=== PATIENT | male | born 2000 | race African-American/Black ===

== ENCOUNTER 2022-11-05 12:42 | Inpatient (IN) | payer MEDICAID ==
[~2022-11-05] VITALS: Ht 177.8 cm; Wt 88.5 kg
[2022-11-05] MEDS: QUEtiapine FUMARATE 100 MG TABLET PO PRN (16:23)
[2022-11-05] MEDS: LORazepam 2 MG TABLET PO PRN (16:23)
[2022-11-05 16:53] VITALS: BP 109/60
[2022-11-05] MEDS ORDERED: INFLUENZA VIRUS VACCINE QVS 2022-23 (6MO+)/PF 60 MCG/0.5 ML SYRINGE IM. ONE (17:00)
[2022-11-05 23:52] VITALS: BP 117/65
[2022-11-06] MEDS: LORazepam 2 MG TABLET PO PRN ×3 (03:35→20:33)
[2022-11-06 07:38] LABS: BASOPHILS % (AUTO) 0.2 % (0.0-2.0); EOSINOPHILS % (AUTO) 4.8 % (1.0-6.0); HEMATOCRIT 42.9 % (41-53); HEMOGLOBIN 14.2 g/dL (13.5-17.5); LYMPHOCYTES # (AUTO) 2.4 K/uL (1.0-4.8); LYMPHOCYTES % (AUTO) 43.2 % (22.0-44.0); MEAN CORPUSCULAR HEMOGLOBIN 29.7 pg (26.0-34.0); MEAN CORPUSCULAR HGB CONC 33.1 G/dL (31.0-37.0); MEAN CORPUSCULAR VOLUME 90 fL (80-100); MONOCYTES # (AUTO) 0.5 K/uL (0.1-1.0); MONOCYTES % (AUTO) 9.2 % (2.0-9.0); NEUTROPHILS # (AUTO) 2.3 K/uL (1.8-7.7); NEUTROPHILS % (AUTO) 42.6 % (40.0-70.0); PLATELET COUNT (AUTO) 339 K/uL (150-450); RED BLOOD CELL COUNT(AUTO) 4.77 MIL/uL (4.50-5.90); RED CELL DISTRIBUTION WIDTH 13.5 % (11.5-14.5)
[2022-11-06] MEDS ORDERED: ACETAMINOPHEN 325 MG TABLET PO PRN (07:45)
[2022-11-06] MEDS ORDERED: CloNIDine HCL 0.1 MG TABLET PO PRN (07:45)
[2022-11-06] MEDS ORDERED: DOCUSATE SODIUM 100 MG CAPSULE PO PRN (07:45)
[2022-11-06] MEDS ORDERED: ALBUTEROL SULFATE HFA 90 MCG/PUFF 8 GM INHALER IH PRN (07:45)
[2022-11-06] MEDS ORDERED: BACITRACIN 28 GM OINTMENT TP PRN (07:45)
[2022-11-06] MEDS ORDERED: LOPERAMIDE HCL 2 MG CAPSULE PO PRN (07:45)
[2022-11-06] MEDS ORDERED: PETROLATUM,WHITE 28 GM JELLY TP PRN (07:45)
[2022-11-06] MEDS ORDERED: OMEPRAZOLE 20 MG CAPSULE PO PRN (07:45)
[2022-11-06] MEDS ORDERED: ONDANSETRON HCL 4 MG TABLET PO PRN (07:45)
[2022-11-06] MEDS ORDERED: BENZOCAINE/MENTHOL LOZENGE PO PRN (07:45)
[2022-11-06] MEDS ORDERED: IBUPROFEN 600 MG TABLET PO PRN (07:45)
[2022-11-06] MEDS ORDERED: MAGNESIUM HYDROXIDE SUSPENSION 30 ML UDCUP PO PRN (07:45)
[2022-11-06] MEDS ORDERED: MAG HYDROX/AL HYDROX/SIMETH ES 30 ML SUSPENSION UDCUP PO PRN (07:45)
[2022-11-06 07:47] LABS: HEMOGLOBIN A1C 5.8 % (3.8-5.6)
[2022-11-06 08:06] LABS: ALANINE AMINOTRANSFERASE 56 U/L (12-78); ALBUMIN 3.4 g/dL (3.4-5.0); ALKALINE PHOSPHATASE 107 U/L (46-116); ANION GAP 7 mmol/L (8-16); ASPARTATE AMINOTRANSFERASE 24 U/L (15-37); BILIRUBIN,TOTAL 0.1 mg/dL (0.1-1.0); CALCIUM, TOTAL 9.4 mg/dL (8.8-10.5); CARBON DIOXIDE 29 mmol/L (22-29); CHLORIDE 103 mmol/L (98-107); CHOLESTEROL 193 mg/dL (131-200); CREATININE 0.86 mg/dL (0.60-1.30); FREE T4 (FREE THYROXINE) 0.84 ng/dL (0.76-1.46); GLUCOSE,RANDOM 88 mg/dL (70-110); HDL CHOLESTEROL 48 mg/dL (40-60); LDL CHOL (CALC.) 127 mg/dL (0-130); POTASSIUM 4.3 mmol/L (3.5-5.1); SODIUM SERUM 139 mmol/L (136-145); THYROID STIMULATING HORMONE 0.57 uIU/mL (0.36-3.74); TOTAL PROTEIN, SERUM 7.5 g/dL (6.4-8.2); TRIGLYCERIDES 90 mg/dL (15-150); UREA NITROGEN, BLOOD 9 mg/dL (7-18)
[2022-11-06 08:07] LABS: GLOMERULAR FILTR. RATE CALC > 60 mL/min (>60)
[2022-11-06] MEDS: QUEtiapine FUMARATE 100 MG TABLET PO PRN ×2 (08:20→16:09)
[2022-11-06] MEDS: NICOTINE 21 MG/24 HOUR PATCH TD SCH (08:21)
[2022-11-06 08:50] VITALS: BP 134/81
[2022-11-06] MEDS ORDERED: ESCI10 PO (10:30)
[2022-11-06] MEDS: ATOMOXETINE HCL 60 MG CAPSULE PO SCH ×2 (10:30→16:15)
[2022-11-06] MEDS ORDERED: ARIP400S3 IM (10:30)
[2022-11-06] MEDS ORDERED: ESCITALOPRAM OXALATE 10 MG TABLET PO SCH (10:30)
[2022-11-06] MEDS ORDERED: ATOM60CA7 PO (10:30)
[2022-11-06] MEDS: ZOLPIDEM TARTRATE 10 MG TABLET PO PRN (20:33)
[2022-11-06 21:42] VITALS: BP 116/64
[2022-11-06] MEDS ORDERED: LORazepam 2 MG/ML VIAL ONE (23:02)
[2022-11-06] MEDS ORDERED: ChlorproMAZINE HCL 50 MG/2 ML AMP ONE (23:02)
[2022-11-06] MEDS ORDERED: DiphenhydrAMINE HCL 50 MG/ML VIAL ONE (23:02)
[2022-11-06] MEDS ORDERED: DiphenhydrAMINE HCL 50 MG/ML VIAL IM ONE (23:15)
[2022-11-06] MEDS ORDERED: ChlorproMAZINE HCL 50 MG/2 ML AMP IM ONE (23:15)
[2022-11-06] MEDS ORDERED: LORazepam 2 MG/ML VIAL IM ONE (23:15)
[2022-11-07] MEDS: ESCITALOPRAM OXALATE 20 MG TABLET PO SCH (08:11)
[2022-11-07] MEDS: NICOTINE 21 MG/24 HOUR PATCH TD SCH (08:11)
[2022-11-07] MEDS: QUEtiapine FUMARATE 100 MG TABLET PO PRN ×2 (08:11→13:33)
[2022-11-07] MEDS: LORazepam 2 MG TABLET PO PRN ×2 (08:11→13:33)
[2022-11-07] MEDS: ATOMOXETINE HCL 60 MG CAPSULE PO SCH (08:19)
[2022-11-07 08:48] VITALS: BP 128/71
[2022-11-07 22:52] VITALS: BP 123/71
[2022-11-08] MEDS: ESCITALOPRAM OXALATE 20 MG TABLET PO SCH (08:01)
[2022-11-08] MEDS: LORazepam 2 MG TABLET PO PRN ×4 (08:01→21:44)
[2022-11-08] MEDS: QUEtiapine FUMARATE 100 MG TABLET PO PRN ×4 (08:01→21:44)
[2022-11-08] MEDS: ATOMOXETINE HCL 60 MG CAPSULE PO SCH (08:01)
[2022-11-08 08:05] LABS: GLUCOMETER DEV NAME(LOC) POC.BV
[2022-11-08] MEDS: NICOTINE 21 MG/24 HOUR PATCH TD SCH (08:27)
[2022-11-08 08:55] VITALS: BP 115/65
[2022-11-08 20:00] VITALS: BP 122/88
[2022-11-08] MEDS: ZOLPIDEM TARTRATE 10 MG TABLET PO PRN (20:38)
[2022-11-09] MEDS: NICOTINE 21 MG/24 HOUR PATCH TD SCH (08:01)
[2022-11-09] MEDS: ATOMOXETINE HCL 60 MG CAPSULE PO SCH (08:01)
[2022-11-09] MEDS: LORazepam 2 MG TABLET PO PRN ×4 (08:01→21:18)
[2022-11-09] MEDS: ESCITALOPRAM OXALATE 20 MG TABLET PO SCH (08:01)
[2022-11-09] MEDS: QUEtiapine FUMARATE 100 MG TABLET PO PRN ×4 (08:02→21:18)
[2022-11-09 09:32] VITALS: BP 139/80
[2022-11-09] MEDS ORDERED: ChlorproMAZINE HCL 50 MG/2 ML AMP ONE (10:19)
[2022-11-09] MEDS ORDERED: LORazepam 2 MG/ML VIAL ONE (10:20)
[2022-11-09] MEDS ORDERED: DiphenhydrAMINE HCL 50 MG/ML VIAL ONE (10:20)
[2022-11-09] MEDS ORDERED: ChlorproMAZINE HCL 50 MG/2 ML AMP IM ONE (10:30)
[2022-11-09] MEDS ORDERED: DiphenhydrAMINE HCL 50 MG/ML VIAL IM ONE (10:30)
[2022-11-09] MEDS ORDERED: LORazepam 2 MG/ML VIAL IM ONE (10:30)
[2022-11-09 16:22] VITALS: BP 127/70
[2022-11-09 20:00] VITALS: BP 132/80
[2022-11-09] MEDS: ZOLPIDEM TARTRATE 10 MG TABLET PO PRN (21:18)
[2022-11-10] MEDS: ESCITALOPRAM OXALATE 20 MG TABLET PO SCH (08:05)
[2022-11-10] MEDS: QUEtiapine FUMARATE 100 MG TABLET PO PRN ×4 (08:05→20:43)
[2022-11-10] MEDS: LORazepam 2 MG TABLET PO PRN ×4 (08:05→20:43)
[2022-11-10] MEDS: NICOTINE 21 MG/24 HOUR PATCH TD SCH (08:05)
[2022-11-10] MEDS: ATOMOXETINE HCL 60 MG CAPSULE PO SCH (08:06)
[2022-11-10 08:36] VITALS: BP 125/75
[2022-11-10] MEDS: ZOLPIDEM TARTRATE 10 MG TABLET PO PRN (20:43)
[2022-11-10 21:30] VITALS: BP 128/70
[2022-11-11] MEDS: QUEtiapine FUMARATE 100 MG TABLET PO PRN ×3 (08:15→16:28)
[2022-11-11] MEDS: ATOMOXETINE HCL 60 MG CAPSULE PO SCH (08:15)
[2022-11-11] MEDS: LORazepam 2 MG TABLET PO PRN ×3 (08:15→16:28)
[2022-11-11] MEDS: NICOTINE 21 MG/24 HOUR PATCH TD SCH (08:15)
[2022-11-11] MEDS: ESCITALOPRAM OXALATE 20 MG TABLET PO SCH (08:15)
[2022-11-11 09:46] VITALS: BP 124/70
[2022-11-11 20:44] VITALS: BP 121/76
[2022-11-12] MEDS: QUEtiapine FUMARATE 100 MG TABLET PO PRN ×3 (01:33→17:29)
[2022-11-12] MEDS: ZOLPIDEM TARTRATE 10 MG TABLET PO PRN ×2 (01:33→20:06)
[2022-11-12 08:32] VITALS: BP 143/69
[2022-11-12] MEDS: NICOTINE 21 MG/24 HOUR PATCH TD SCH (09:04)
[2022-11-12] MEDS: ATOMOXETINE HCL 60 MG CAPSULE PO SCH (09:04)
[2022-11-12] MEDS: ESCITALOPRAM OXALATE 20 MG TABLET PO SCH (09:05)
[2022-11-12 21:05] VITALS: BP 106/64
[2022-11-13] MEDS: ESCITALOPRAM OXALATE 20 MG TABLET PO SCH (08:30)
[2022-11-13] MEDS: ATOMOXETINE HCL 60 MG CAPSULE PO SCH (08:30)
[2022-11-13] MEDS: NICOTINE 21 MG/24 HOUR PATCH TD SCH (08:31)
[2022-11-13 08:52] VITALS: BP 121/66
[2022-11-13] MEDS: QUEtiapine FUMARATE 100 MG TABLET PO PRN ×3 (09:05→16:11)
[2022-11-13] MEDS: LORazepam 2 MG TABLET PO PRN (16:11)
[2022-11-13 21:00] VITALS: BP 115/66
[2022-11-14 08:59] VITALS: BP 121/60
[2022-11-14] MEDS: ESCITALOPRAM OXALATE 20 MG TABLET PO SCH (09:43)
[2022-11-14] MEDS: NICOTINE 21 MG/24 HOUR PATCH TD SCH (09:43)
[2022-11-14] MEDS: QUEtiapine FUMARATE 100 MG TABLET PO PRN (09:48)
[2022-11-14] MEDS: ATOMOXETINE HCL 60 MG CAPSULE PO SCH (10:40)
[2022-11-14] MEDS: LORazepam 2 MG TABLET PO PRN (16:56)
[2022-11-14 20:55] VITALS: BP 120/62
[2022-11-15] MEDS: ZOLPIDEM TARTRATE 10 MG TABLET PO PRN (03:00)
[2022-11-15] MEDS: LORazepam 2 MG TABLET PO PRN (05:30)
[2022-11-15 07:41] LABS: GLUCOMETER DEV NAME(LOC) POC.BV
[2022-11-15] MEDS: ATOMOXETINE HCL 60 MG CAPSULE PO SCH (08:15)
[2022-11-15] MEDS: NICOTINE 21 MG/24 HOUR PATCH TD SCH (08:15)
[2022-11-15] MEDS: ESCITALOPRAM OXALATE 20 MG TABLET PO SCH (08:15)
[2022-11-15] MEDS ORDERED: ATOM60CA7 PO (08:42)
[2022-11-15] MEDS ORDERED: ESCI20TA87 PO (08:42)
[2022-11-15 09:34] VITALS: BP 118/62
== END 2022-11-15 10:50 | disposition left against medical advice (07) | DRG 750 ==
LOC: B3A 16:08
PROVIDERS: ADMIT Psychiatry & Neurology Psychiatry; ATTEND Psychiatry & Neurology Psychiatry
DX: F25.1 Schizoaffective disorder, depressive type (principal); R45.851 Suicidal ideations; K59.00 Constipation, unspecified; F41.9 Anxiety disorder, unspecified; F98.8 Other specified behavioral and emotional disorders with onset usually occurring in childhood and adolescence; Z20.822 Contact with and (suspected) exposure to COVID-19; G47.00 Insomnia, unspecified; Z79.899 Other long term (current) drug therapy; Z88.8 Allergy status to other drugs, medicaments and biological substances; Z65.3 Problems related to other legal circumstances; Z91.51 Personal history of suicidal behavior
CPT/HCPCS: 80053; 80061; 83036; 84439; 84443; 85025; J1200; J2060; J3230; Q9967

== ENCOUNTER 2023-05-23 21:38 | Emergency (ER) | payer MEDICAID, OTHER ==
[~2023-05-23] VITALS: Ht 180.3 cm; Wt 70.0 kg
[~2023-05-23 21:38] MED LIST: ARIP400S3 IM; ATOM60CA7 PO; ESCI20TA87 PO
[2023-05-23 22:43] VITALS: BP 114/57; PULSE 91; RESP 16; TEMP 98.8
[2023-05-23 23:23] LABS: GLUCOMETER DEV NAME(LOC) ERT.5
== END 2023-05-23 23:00 | disposition left against medical advice (07) ==
LOC: EMS 21:39
DX: R53.1 Weakness (principal); Z53.21 Procedure and treatment not carried out due to patient leaving prior to being seen by health care provider
CPT/HCPCS: 82962; 99281